=== PATIENT | female | born 1990 | race Caucasian/White ===

== ENCOUNTER 2018-01-06 20:54 | Emergency (ER) | payer MEDICAID ==
[~2018-01-06] VITALS: Ht 162.6 cm; Wt 56.2 kg
[2018-01-06 21:19] VITALS: BP 136/91
[2018-01-06 21:53] LABS: Basophils # (auto) 0 uL; Basophils % (auto) 0.5 % (0.0-2.0); Eosinophils # (auto) 0.1 uL; Eosinophils % (auto) 1.1 % (0.0-7.0); Hematocrit 42.3 % (36.0-46.0); Hemoglobin 14.1 g/dL (12.2-16.2); Lymphocytes # (auto) 2.6 uL; Lymphocytes % (auto) 34.6 % (10.0-50.0); Mean Corpuscular Hemoglobin 29.8 pg (28.0-32.0); Mean Corpuscular Hgb Conc. 33.3 g/dL (32.0-36.0); Mean Corpuscular Volume 89.7 fL (80.0-100.0); Monocytes # (auto) 0.4 uL; Monocytes % (auto) 5.9 % (0.0-12.0); Neutrophils # (auto) 4.4 uL; Neutrophils % (auto) 57.9 % (37.0-80.0); Nucleated Red Blood Cells % 0.1 %; Platelet Count (auto) 292 10^3/uL (140-450); Red Blood Cells 4.72 10^6/uL (4.0-5.20); Red Cell Distribution Width 13.2 % (11.8-14.3); White Blood Cell 7.6 10^3/uL (4.4-10.8)
[2018-01-06 22:13] LABS: Albumin 4.5 g/dL (3.4-5.0); BUN/Creatinine Ratio 5.3; Bilirubin, Total 0.3 mg/dL (0.2-1.0); Calcium 9.1 mg/dL (8.5-10.1); Potassium 3.9 mmol/L (3.5-5.1); Total Protein 7.8 g/dL (6.4-8.2)
== END 2018-01-07 05:23 | disposition left against medical advice (07) ==
LOC: ER 20:54
DX: R53.1 Weakness (principal); R56.9 Unspecified convulsions; Z53.21 Procedure and treatment not carried out due to patient leaving prior to being seen by health care provider
CPT/HCPCS: 36415; 70450; 80053; 84702; 85025

== ENCOUNTER 2019-11-07 18:51 | Emergency (ER) | payer MEDICAID ==
[~2019-11-07] VITALS: Ht 170.2 cm; Wt 61.2 kg
[2019-11-07] MEDS ORDERED: SODIUM CHLORIDE 0.9% 1,000 ML IVB ONE (19:09)
[2019-11-07] MEDS ORDERED: LORazepam 2MG/ML-1ML VIAL IV ONE (19:15)
[2019-11-07 19:54] LABS: Basophils # (auto) 0 10 ^3/uL (0-0.2); Basophils % (auto) 0.6 % (0.0-2.0); Eosinophils # (auto) 0 10 ^3/uL (0-0.8); Eosinophils % (auto) 0.7 % (0.0-7.0); Hematocrit 41.5 % (36.0-46.0); Lymphocytes # (auto) 1.7 10 ^3/uL (0.4-5.4); Lymphocytes % (auto) 25.6 % (10.0-50.0); Mean Corpuscular Hemoglobin 29.9 pg (28.0-32.0); Mean Corpuscular Hgb Conc. 33.8 g/dL (32.0-36.0); Mean Corpuscular Volume 88.5 fL (80.0-100.0); Monocytes # (auto) 0.4 10 ^3/uL (0-1.3); Monocytes % (auto) 6.5 % (0.0-12.0); Neutrophils # (auto) 4.4 10 ^3/uL (1.6-8.6); Neutrophils % (auto) 66.6 % (37.0-80.0); Nucleated Red Blood Cells % 0.1 %; Platelet Count (auto) 288 10^3/uL (140-450); Red Blood Cells 4.69 10^6/uL (4.0-5.20); Red Cell Distribution Width 12.8 % (11.8-14.3); White Blood Cell 6.5 10^3/uL (4.4-10.8)
[2019-11-07 20:11] LABS: Albumin 4.4 g/dL (3.4-5.0); Anion Gap 8 (5-15); Blood Urea Nitrogen 10 mg/dL (7-18); Calcium 9.5 mg/dL (8.5-10.1); Carbon Dioxide 21 mmol/L (21-32); Chloride 108 mmol/L (98-107); Glucose 103 mg/dL (74-106); Potassium 3.8 mmol/L (3.5-5.1); Sodium 137 mmol/L (136-145)
[2019-11-07 20:20] LABS: Alanine Aminotransferase 37 U/L (13-56); Alkaline Phosphatase 74 U/L (45-117); Aspartate Aminotransferase 19 U/L (15-37); Bilirubin, Total 0.8 mg/dL (0.2-1.0); GFR African American 84 mL/min; GFR Non-African American 69 mL/min; Magnesium 2.3 mg/dL (1.6-2.6)
[2019-11-07 20:21] LABS: Blood Alcohol < 3.0 mg/dL (0-5)
[2019-11-07 22:05] LABS: Urine Bacteria FEW /hpf (None Seen); Urine Blood Negative /uL (Negative); Urine Hyaline Cast FEW /lpf (0 - 2); Urine Specific Gravity 1.008 (1.001-1.035); Urine WBC 1 /hpf (0 - 5)
[2019-11-07 22:24] LABS: Alcohol, Urine < 3.0 mg/dL (0-5); Amphetamine Screen, Urine POSITIVE (NEGATIVE); Barbiturate Scree,Urine NEGATIVE (NEGATIVE); Benzodiazephine Screen, Urine NEGATIVE (NEGATIVE); Cannabinoid Screen, Urine NEGATIVE (NEGATIVE); Cocaine Screen, Urine NEGATIVE (NEGATIVE); Opiate Scree,Urine NEGATIVE (NEGATIVE); Phencyclidine Screen, Urine NEGATIVE (NEGATIVE)
[2019-11-08 00:41] VITALS: BP 120/76
== END 2019-11-08 02:19 | disposition home or self-care (01) ==
LOC: ER 18:51 → EDBD 18:51 → ER 11-08 02:19
DX: F43.22 Adjustment disorder with anxiety (principal); F31.9 Bipolar disorder, unspecified; F20.9 Schizophrenia, unspecified; R41.82 Altered mental status, unspecified
CPT/HCPCS: 36415; 80053; 80307; 80320; 81001; 83735; 84484; 84702; 85025; 93005; 96361; 96374; 99284; J2060; J7030

== ENCOUNTER → 2020-07-09 | Day surgery (SDC) | payer MEDICAID ==
[~2020-07-09] VITALS: Ht 162.6 cm; Wt 61.7 kg
[~2020-07-09] MED LIST: AMPH10TA2 PO; BUPIVACAINE 0.25% INJ 50ML VIAL ONE; HEPARIN SODIUM (PORCINE) 5000 UNITS/ML 1ML VIAL ONE; LIDOCAINE 2% JELLY 11ml (GLYDO) ONE; LIDOCAINE W/ EPINEPHRINE 1% 20ML VIAL ONE; MIDAZOLAM HCL 1MG/1ML-2 ML VIAL ONE; ONDANSETRON HCL 4 MG/2 ML VIAL IV PRN; PARO30TA99 PO; PROP10TA57 PO; PROPOFOL 10 MG/ML 20 ML IV ONE; ZIPR80CA8 PO; ceFAZolin 1GM/50ML 50 ML IV ONE; ePHEDrine SULFATE 50 MG/ML AMP IV PRN; fentaNYL CITRATE 100 MCG/2 ML VL IV PRN; fentaNYL CITRATE 100 MCG/2 ML VL ONE; hydrALAZINE HCL 20 MG/ML VL IV PRN; metroNIDAZOLE 500MG/100ML 100 ML IV ONE
[2020-07-09 12:20] VITALS: BP 96/58
== END | disposition home or self-care (01) ==
LOC: SUR 08:55
PROVIDERS: ATTEND Surgery
DX: K64.4 Residual hemorrhoidal skin tags (principal); K60.2 Anal fissure, unspecified; K64.8 Other hemorrhoids; F31.9 Bipolar disorder, unspecified; F20.9 Schizophrenia, unspecified; Z20.828 Contact with and (suspected) exposure to other viral communicable diseases; Z90.89 Acquired absence of other organs; Z98.890 Other specified postprocedural states; Z79.899 Other long term (current) drug therapy
CPT/HCPCS: 46220; 88305; J0690; J1644; J2250; J2704; J3010; J3490; U0003

== ENCOUNTER 2022-11-07 12:49 | Emergency (ER) | payer MEDICAID ==
[~2022-11-07] VITALS: Ht 165.1 cm; Wt 83.6 kg
[~2022-11-07 12:49] MED LIST changes: -BUPIVACAINE 0.25% INJ 50ML VIAL ONE; -HEPARIN SODIUM (PORCINE) 5000 UNITS/ML 1ML VIAL ONE; -LIDOCAINE 2% JELLY 11ml (GLYDO) ONE; -LIDOCAINE W/ EPINEPHRINE 1% 20ML VIAL ONE; -MIDAZOLAM HCL 1MG/1ML-2 ML VIAL ONE; -ONDANSETRON HCL 4 MG/2 ML VIAL IV PRN; -PROPOFOL 10 MG/ML 20 ML IV ONE; +ZIPR80CA37 PO; -ZIPR80CA8 PO; -ceFAZolin 1GM/50ML 50 ML IV ONE; -ePHEDrine SULFATE 50 MG/ML AMP IV PRN; -fentaNYL CITRATE 100 MCG/2 ML VL IV PRN; -fentaNYL CITRATE 100 MCG/2 ML VL ONE; -hydrALAZINE HCL 20 MG/ML VL IV PRN; -metroNIDAZOLE 500MG/100ML 100 ML IV ONE
[2022-11-07 14:38] LABS: Urine Bacteria FEW /hpf (None Seen); Urine Blood Negative /uL (Negative); Urine Mucus FEW (None Seen); Urine Specific Gravity 1.024 (1.001-1.035); Urine WBC 14 /hpf (0 - 5)
[2022-11-07 14:44] LABS: Alcohol, Urine < 3.0 mg/dL (0-10); Amphetamine Screen, Urine NEGATIVE (NEGATIVE); Barbiturate Scree,Urine NEGATIVE (NEGATIVE); Benzodiazephine Screen, Urine NEGATIVE (NEGATIVE); Cannabinoid Screen, Urine NEGATIVE (NEGATIVE); Cocaine Screen, Urine NEGATIVE (NEGATIVE); Opiate Scree,Urine NEGATIVE (NEGATIVE); Phencyclidine Screen, Urine NEGATIVE (NEGATIVE)
[2022-11-07 15:00] LABS: Basophils # (auto) 0.1 10 ^3/uL (0-0.2); Basophils % (auto) 0.8 % (0.0-2.0); Eosinophils # (auto) 0 10 ^3/uL (0-0.8); Eosinophils % (auto) 0.8 % (0.0-7.0); Hematocrit 42.3 % (36.0-46.0); Hemoglobin 14.1 g/dL (12.2-16.2); Lymphocytes % (auto) 31.3 % (10.0-50.0); Mean Corpuscular Hemoglobin 29.6 pg (28.0-32.0); Mean Corpuscular Hgb Conc. 33.4 g/dL (32.0-36.0); Mean Corpuscular Volume 88.6 fL (80.0-100.0); Monocytes # (auto) 0.4 10 ^3/uL (0-1.3); Monocytes % (auto) 6.2 % (0.0-12.0); Neutrophils # (auto) 3.9 10 ^3/uL (1.6-8.6); Neutrophils % (auto) 60.9 % (37.0-80.0); Nucleated Red Blood Cells % 0.1 %; Red Blood Cells 4.77 10^6/uL (4.0-5.20); Red Cell Distribution Width 13.9 % (11.8-14.3); White Blood Cell 6.5 10^3/uL (4.4-10.8)
[2022-11-07 15:31] LABS: Calcium 9.4 mg/dL (8.5-10.1); Potassium 3.9 mmol/L (3.5-5.1)
[2022-11-07 15:34] LABS: BUN/Creatinine Ratio 13.8; Bilirubin, Total 0.2 mg/dL (0.2-1.0); Total Protein 7.6 g/dL (6.4-8.2)
[2022-11-07] MEDS ORDERED: clonazePAM 0.5 MG TAB PO ONE (19:45)
[2022-11-08] MEDS ORDERED: HYDROcodone-ACET 5/325MG TAB PO ONE (16:30)
[2022-11-08] MEDS: cloNIDine HCL 0.1 MG TAB PO ONE ×2 (23:02→23:09)
[2022-11-08] MEDS ORDERED: clonazePAM 0.5 MG TAB PO ONE ×2 (23:15→23:45)
[2022-11-08] MEDS ORDERED: ACETAMINOPHEN 325 MG TAB PO ONE (23:15)
[2022-11-09] MEDS ORDERED: ACETAMINOPHEN 500 MG TAB PO ONE (11:45)
[2022-11-09] MEDS ORDERED: LORazepam 0.5 MG TAB PO ONE ×2 (11:45)
[2022-11-09] MEDS ORDERED: ACETAMINOPHEN 325 MG TAB PO ONE (18:15)
[2022-11-09 19:46] VITALS: BP 114/72
[2022-11-09] MEDS ORDERED: QUEtiapine FUMARATE 25 MG TAB PO SCH (22:00)
== END 2022-11-09 20:04 | disposition short-term general hospital (02) ==
LOC: ER 12:49
DX: F25.9 Schizoaffective disorder, unspecified (principal); N39.0 Urinary tract infection, site not specified; R07.89 Other chest pain; Z20.822 Contact with and (suspected) exposure to COVID-19
CPT/HCPCS: 36415; 71045; 80053; 80307; 81001; 81025; 85025; 87426